=== PATIENT | male | born 1985 | race Caucasian/White ===

== ENCOUNTER 2019-05-24 14:36 | Emergency (ER) | payer MEDICAID ==
[~2019-05-24] VITALS: Ht 175.3 cm; Wt 73.8 kg
[2019-05-24 14:48] VITALS: BP 154/100
[2019-05-24] MEDS ORDERED: rabies immune globulin/PF 150 unit/ml inj IMVAC STA (15:14)
[2019-05-24] MEDS ORDERED: ondansetron 4mg rapidly disintigrating tab PO ONE (15:15)
[2019-05-24] MEDS ORDERED: LORazepam 1 MG tablet PO ONE (15:15)
[2019-05-24] MEDS ORDERED: amox tr/potassium clavulanate 875/125mg TAB PO ONE (15:15)
[2019-05-24] MEDS ORDERED: rabies vaccine (PCEC)/PF 2.5 unit kit IMVAC ONE (15:15)
[2019-05-24] MEDS ORDERED: AMOX-419 PO (15:17)
--- NOTE | 2019-05-24 15:22 | NUR ---
RAYMUNDO was notified of the dog bite.
== END 2019-05-24 17:03 | disposition home or self-care (01) ==
LOC: ER 14:39
DX: S81.811A Laceration without foreign body, right lower leg, initial encounter (principal); Z88.6 Allergy status to analgesic agent; Z79.899 Other long term (current) drug therapy; W54.0XXA Bitten by dog, initial encounter; Y93.89 Activity, other specified; Y92.89 Other specified places as the place of occurrence of the external cause; Y99.8 Other external cause status
CPT/HCPCS: 90375; 90471; 90675; 96372; 99284

== ENCOUNTER 2019-05-29 14:55 | Emergency (ER) | payer MEDICAID ==
[~2019-05-29] VITALS: Ht 175.3 cm; Wt 72.7 kg
[~2019-05-29 14:55] MED LIST: AMOX-419 PO
[2019-05-29] MEDS ORDERED: dicyclomine 10 MG capsule PO ONE (15:35)
[2019-05-29] MEDS ORDERED: cloNIDine 0.1 mg tablet PO ONE (15:35)
[2019-05-29] MEDS ORDERED: CLON-529 PO (16:06)
[2019-05-29] MEDS ORDERED: DICY10CA88 PO (16:06)
[2019-05-29] MEDS ORDERED: LOPE2TAB25 PO (16:06)
[2019-05-29 16:43] VITALS: BP 146/91
== END 2019-05-29 17:06 | disposition home or self-care (01) ==
LOC: ER 14:56
DX: F11.23 Opioid dependence with withdrawal (principal); Z88.6 Allergy status to analgesic agent; Z79.899 Other long term (current) drug therapy
CPT/HCPCS: 99283

== ENCOUNTER 2022-07-20 08:11 | Emergency (ER) | payer MEDICAID ==
[~2022-07-20] VITALS: Ht 170.2 cm; Wt 79.5 kg
[~2022-07-20 08:11] MED LIST changes: -AMOX-419 PO; +CLON-529 PO; +DICY10CA88 PO; +LOPE2TAB25 PO
[2022-07-20 08:51] LABS: HEMATOCRIT 38.2 % (42.0-52.0); HEMOGLOBIN 12.9 g/dl (14.0-17.9); LYMPHOCYTES % (AUTO) 12.1 % (21-51); MEAN CORPUSCULAR HEMOGLOBIN 29.6 PG (27.0-31.0); MEAN CORPUSCULAR HGB CONC 33.9 g/dL (33.0-36.5); MEAN CORPUSCULAR VOLUME 87.3 FL (78-98); MEAN PLATELET VOLUME 8.3 FL (7.4-10.4); MONOCYTES % (AUTO) 5.4 % (2-12); NEUTROPHILS % (AUTO) 82.1 % (42-75); PLATELET COUNT 345 X10'3 (140-440); RED BLOOD COUNT 4.38 X10'6 (4.70-6.10); WHITE BLOOD COUNT 6.4 X10'3 (4.5-11.0)
[2022-07-20 08:52] LABS: BASOPHILS % (AUTO) 0.3 % (0-1); EOSINOPHILS % (AUTO) 0.1 % (0-6); LYMPHOCYTES # (AUTO) 0.8 X10'3 (1.1-4.8); MONOCYTES # (AUTO) 0.3 X10'3 (0-0.9); NEUTROPHILS # (AUTO) 5.3 X10'3 (1.8-7.7)
[2022-07-20 09:09] LABS: GLUCOSE 105 MG/DL (70-104); SODIUM 138 MMOL/L (135-145)
[2022-07-20 09:11] LABS: ANION GAP 10 (8-16); CHLORIDE 102 MMOL/L (99-107); TOTAL CARBON DIOXIDE 25.6 MMOL/L (24-32)
[2022-07-20 09:12] LABS: ALANINE AMINOTRANSFERASE 52 U/L (12-78); ALBUMIN 4.3 G/DL (3.4-5.0); ALBUMIN/GLOBULIN RATIO 1.2 (1.1-1.5); ALKALINE PHOSPHATASE 73 IU/L (46-116); ASPARTATE AMINO TRANSFERASE 29 U/L (10-37); BILIRUBIN,TOTAL 0.5 MG/DL (0.1-1.0); BLOOD UREA NITROGEN 12 MG/DL (7-18); CALCIUM 9.3 MG/DL (8.5-10.1); TOTAL PROTEIN 7.8 G/DL (6.4-8.2); eGFR > 90 ML/MIN
[2022-07-20 09:17] LABS: MAGNESIUM 2.1 MG/DL (1.5-2.4)
--- NOTE | 2022-07-20 10:14 | NUR ---
pt amb to room 1 with steady gait. upon asking pt why he came to emergency dept, pt states "I just feel off" pt states "from my head to by abdomen it feels like it wants to go like i am just waking up or going to sleep" pt states did mushroom, weed and methadone a couple of days ago when symptoms started. per parents pt is just not acting right and not making sense for the past couple of days.
--- NOTE | 2022-07-20 10:56 | NUR ---
called into pts room, per father pt ran out the door and his went to go and try to bring pt back. per father unable to keep pt still. informed father that since he is not a danger to himself or others i can't leave the hospital and bring him back.
[2022-07-20] MEDS ORDERED: POTASSIUM BICARB 20meq eff tab 20 MEQ TABLET.EFF PO ONE (11:00)
[2022-07-20] MEDS ORDERED: haloperidol 5mg tablet PO ONE (11:15)
[2022-07-20] MEDS ORDERED: LORazepam 1 MG tablet PO ONE (11:15)
[2022-07-20] MEDS ORDERED: diphenhydrAMINE 25mg capsule PO ONE (11:15)
[2022-07-20 11:36] VITALS: BP 139/80
[2022-07-20 13:09] LABS: URINE AMPHETAMINE SCREEN POSITIVE (Neg); URINE BARBITUATE SCREEN NEGATIVE (Neg); URINE BENZODIAZEPINES SCREEN NEGATIVE (Neg); URINE CANNABINOID SCREEN POSITIVE (Neg); URINE COCAINE SCREEN NEGATIVE (Neg); URINE METHADONE SCREEN POSITIVE (Neg); URINE OPIATE SCREEN NEGATIVE (Neg); URINE PHENCYCLIDINE SCREEN NEGATIVE (Neg)
--- NOTE | 2022-07-22 10:08 | NUR ---
Patient received my card from ER staff and called me about wanting resources for treatment options. Patient currently on methadone. Patient is interested in weening off of methadone. I recommended patient ween off with current provider that is prescribing the methadone. I talked to patient about inpatient rehab. Patient still currently using meth and I discussed with him about getting a sponsor and going to meetings while weening off methadone and then once he is on Suboxone, I will help him go to an inpatient facility.
== END 2022-07-20 11:38 | disposition home or self-care (01) ==
LOC: ER 08:12
DX: F19.10 Other psychoactive substance abuse, uncomplicated (principal); G47.00 Insomnia, unspecified; Z88.6 Allergy status to analgesic agent; Z79.899 Other long term (current) drug therapy
CPT/HCPCS: 36415; 71045; 80053; 80305; 83735; 83880; 84484; 85025; 93005; 99285; Q0163

== ENCOUNTER 2024-07-27 23:44 | Emergency (ER) | payer MEDICAID ==
[~2024-07-27] VITALS: Ht 175.3 cm; Wt 72.7 kg
[2024-07-27 23:48] VITALS: TEMP 99.1
[2024-07-28 00:30] VITALS: BP 150/88; PULSE 98; RESP 18; O2SAT 99
[2024-07-28] MEDS: predniSONE 20 mg tablet PO ONE (01:13)
[2024-07-28] MEDS ORDERED: CLOB15OI21 TOP (01:30)
[2024-07-28] MEDS ORDERED: PRED10TA PO (01:30)
== END 2024-07-28 01:35 | disposition home or self-care (01) ==
LOC: ER 23:45
DX: L08.0 Pyoderma (principal); Z88.5 Allergy status to narcotic agent
CPT/HCPCS: 99283; J7512